=== PATIENT | female | born 1995 | race Hispanic/Latino ===

== ENCOUNTER 2024-04-18 19:12 | Emergency (ER) | payer SELFPAY ==
[2024-04-18 19:14] VITALS: BP 117/77; BMI 24.1
[2024-04-18 19:46] LABS: ALT (SGPT) 18 U/L (0-35); AST (SGOT) 29 U/L (14-36); Albumin 4.6 g/dl (3.5-5.0); Alkaline Phosphatase 53 U/L (38-126); Blood Urea Nitrogen 14 mg/dl (7-17); Calcium 9.3 mg/dl (8.4-10.2); Carbon Dioxide 23 mmol/L (22-30); Chloride 104 mmol/L (98-107); Estimated Creatinine Clearance 103 ml/min; Glucose 89 mg/dl (70-99); Potassium 3.7 mmol/L (3.5-5.1); Sodium 140 mmol/L (135-145); Total Bilirubin 0.5 mg/dl (0.2-1.3); Total Protein 7.6 g/dl (6.3-8.2); eGFR > 60.00
[2024-04-18 19:47] LABS: Lipase 125 U/L (23-300)
--- NOTE | 2024-04-18 19:53 | ED.GENMED ---
History of Present Illness
General
Chief Complaint: Abdominal Symptoms
Source: patient and family
Exam Limitations: none
Time Seen by Provider: 04/18/24 19:36
Nursing documentation reviewed up to this point in time: agreed with
History of Present Illness
History of Present Illness:
29-year-old female visiting from [facility] presents with crampy lower abdominal pain similar to her menstrual cramps she has had similar in the past with heavy bleeding started on hormonal patch no patch this month she thought she might be better she
[place], acute onset of crampy pain heavy bleeding nausea vomiting, use some acetaminophen with some relief, no fever or chills, she said to go back home in 2 days she has had a biopsy of a breast lesion apparently but no
abdominal surgeries previously
Past History
Past History
ED Past Medical History: Other (Heavy periods?)
ED Past Surgical History: Other (Biopsy)
Social History
Tobacco: Non-smoker
Alcohol: None
Drug: None
Living: with family
Employment: Employed
Review of Systems
Review of Systems
All Other Systems: Not applicable
Constitutional: Denies fever or fatigue
Respiratory: Reports no symptoms
Cardiac: Reports no symptoms
ABD/GI: Reports abdominal pain, nausea and vomiting
: Reports bleeding
Musculoskeletal: Reports no symptoms
Skin: Reports no symptoms
Neurological: Reports no symptoms
Endocrine: Reports no symptoms
Phy Exam
Physical Exam
Physical Exam:
Physical Exam
General: no apparent distress, not acutely ill
Neck: No jaundice
Heart: s1/s2 regular rate and rhythm, no murmur. equal radial pulses.
Lungs: no acute respiratory distress. clear bilaterally
Abdomen: Minimal suprapubic tenderness no guarding or rebound
Neuro: alert and oriented. no focal neurological deficits
Skin: no rash
Psychiatric: well kept. interactive and cooperative
Extremities: no edema.
Course
Orders/Labs/Results
Orders:
Orders
04/18/24 19:14
IV Insert/Care/Rem.- Treatment PRN
04/18/24 19:19
Complete Blood Count/With Diff Urgent
Comprehensive Metabolic Panel Urgent
HCG, Serum Qualitative Screen Urgent
Comment: ADD ON
Lipase Urgent
Urinalysis Reflex To Culture Urgent
Date Specimen was Collected: 04/18/24
Time Specimen was Collected: :14
04/18/24 19:47
Add On- LAB Urgent
Tests Added?: hcg qualitative
0.9% Sodium Chloride 1000 ml [Nss] 1,000 ml IV BOLUS
Ketorolac [Toradol] 30 mg IV NOW STA
Ondansetron Injectable [Zofran] 4 mg IV NOW STA
Abnormal Lab Results
04/18/24
19:19
WBC 13.8 H 10^3/uL
(4.8-10.8)
RBC 4.15 L 10^6/uL
(4.20-5.40)
Hct 36.1 L %
(37.0-47.0)
MPV 13.7 H fL
(7.4-10.4)
Absolute Neuts (auto) 11.6 H 10^3/uL
(1.4-6.5)
Absolute Monos (auto) 0.9 H 10^3/uL
(0.1-0.6)
Neutrophils % 83.8 H %
(42.2-75.2)
Lymphocytes % 9.0 L %
(20.5-51.1)
04/18/24 19:19
04/18/24 19:19
Vital Signs
Initial and Last Documented VS:
Initial Vital Signs
Temp Pulse Resp BP Pulse Ox
98.0 F 90 17 117/77 100
04/18/24 19:14 04/18/24 19:14 04/18/24 19:14 04/18/24 19:14 04/18/24 19:14
Last Documented Vital Signs
Temp Pulse Resp BP Pulse Ox
98.0 F 87 18 117/77 100
04/18/24 19:14 04/18/24 19:15 04/18/24 19:15 04/18/24 19:14 04/18/24 19:15
MDM/Problems Addressed
Differential Diagnosis Includes:
Menstrual cramps, menorrhagia, fibroids, other
MDM/Problems Addressed:
Vaginal bleeding nausea vomiting
Chronic conditions affecting care:
Heavy menstrual periods
*Pulse Oximetry
Patient hypoxic: no
*Critical Care Note
Total Time (30-74mins, 75-104mins- exclusive of procedures): Not Applicable
Update Note
Update Note:
9 PM update patient feeling better abdomen soft and nontender
ED Attending Note
-
Portions of this chart may have been created with voice recognition software.� Occasional wrong word or��sound alike� substitutions may have occurred due to the inherent limitations of voice recognition software.
Discharge Plan
Departure
Patient Disposition: Home (Routine Discharge)
Date of Disposition: 04/18/24
Time of Disposition: 21:02
Patient with high blood pressure during this ER visit?: No
Discharge Problem:
Moderate cramps with menses
Instructions: Nausea and Vomiting, Adult (DC), Abdominal Pain
Prescriptions:
New
ibuprofen 600 mg tablet
600 mg PO Q6H PRN (Reason: Pain) Qty: 20 0RF
ondansetron 4 mg tablet,disintegrating
4 mg PO Q8H PRN (Reason: nausea and vomiting) Qty: 10 0RF
Referrals:
NONE,* [Family Provider] -
Interventions
Interventions:
*General Assessment Last Done: 04/18/24 19:14
ED- Fall Risk Assessment Last Done: 04/18/24 19:26
*ED COVID-19 Vaccine History Last Done: 04/18/24 19:14
SF-Ovtypn-Bntukwnnlc Assessment Last Done: 04/18/24 19:26
Discharge Date and Time
Print Language: SYRIAC
[2024-04-18 20:05] LABS: HCG, Serum Qualitative Screen Negative
[2024-04-18 20:07] LABS: % Basophils 0.2 % (0-2); % Eosinophils 0.1 % (0-6); % Immature Granulocytes 0.3 % (0-0.5); % Monocytes 6.6 % (1.7-9.3); % Neutrophils 83.8 % (42.2-75.2); Absolute Lymphocytes 1.2 10^3/uL (1.2-3.4); Absolute Monocytes 0.9 10^3/uL (0.1-0.6); Absolute Neutrophils 11.6 10^3/uL (1.4-6.5); Hematocrit 36.1 % (37.0-47.0); Hemoglobin 12.3 g/dL (12.0-16.0); Mean Corp Hgb Conc. 34.1 g/dL (33.0-37.0); Mean Corpuscular Hgb 29.6 pg (27.0-31.0); Mean Platelet Volume 13.7 fL (7.4-10.4); Nucleated Red Blood Cells % 0 %; Platelet Count 207 10^3/uL (130-400); Red Blood Cell Count 4.15 10^6/uL (4.20-5.40); Red Cell Dist. Width 13.2 % (11.5-14.5); White Blood Cell Count 13.8 10^3/uL (4.8-10.8)
[2024-04-18] MEDS: NSS 1000 IV (20:20)
[2024-04-18] MEDS: TORADOL 30 MG IV (20:21)
[2024-04-18] MEDS: ZOFRAN 4 MG IV (20:21)
== END 2024-04-18 21:32 | disposition home or self-care (01) ==
LOC: EMR 19:12
PROVIDERS: EMERGENCY PHYSICIAN Emergency Medicine
DX: R10.30 Lower abdominal pain, unspecified (principal)
CPT/HCPCS: 99283; 96374; 96375; 96361; 80053; 83690; 84703; 85025